=== PATIENT | male | born 2000 | race Caucasian/White ===

== ENCOUNTER 2020-03-11 03:15 | Emergency (ER) | payer OTHER ==
[~2020-03-11] VITALS: Ht 190.5 cm; Wt 82.0 kg
--- NOTE | 2020-03-11 04:06 | PHYS DOC ---
Past History Past Medical History: No Pertinent History Past Surgical History: Other Additional Past Surgical Histo: cyst removed from index finger-lt hand; wisdom teeth removed Alcohol Use: None General Adult EDM: Chief Complaint: LACERATION/AVULSION HPI: HPI: 19-year-old male presents with laceration of the right knee. He was playing soccer with his college soccer team and got a cleat in the knee. He sustained a 6 cm deep V-shaped laceration. They bandaged it up and the patient was able to continue play. This happened about 6 hours ago. After the patient came back to his local university they brought him to the emergency room. His tetanus is up-to-date. Patient denies any other injuries or complaints. He is able to flex and extend the leg. Denies numbness, tingling, altered sensation. Review of Systems: Review of Systems: Constitutional: Denies fever or chills Eyes: Denies change in visual acuity HENT: Denies nasal congestion or sore throat Respiratory: Denies cough or shortness of breath Cardiovascular: Denies chest pain or edema GI: Denies abdominal pain, nausea, vomiting, bloody stools or diarrhea : Denies dysuria Musculoskeletal: Denies back pain or joint pain Integument: Laceration right knee Neurologic: Denies headache, focal weakness or sensory changes Endocrine: Denies polyuria or polydipsia Lymphatic: Denies swollen glands Psychiatric: Denies depression or anxiety Allergies: Allergies: Allergies Coded Allergies Type Severity Reaction Last Updated Verified No Known Drug Allergies 03/11/20 No Physical Exam: PE: Constitutional: Well developed, well nourished, no acute distress, non-toxic appearance. [] HENT: Normocephalic, atraumatic, bilateral external ears normal, oropharynx moist, no oral exudates, nose normal. [] Eyes: PERRLA, EOMI, conjunctiva normal, no discharge. [] Neck: Normal range of motion, no tenderness, supple, no stridor. [] Cardiovascular:Heart rate regular rhythm, no murmur [] Lungs & Thorax: Bilateral breath sounds clear to auscultation [] Abdomen: Bowel sounds normal, soft, no tenderness, no masses, no pulsatile masses. [] Skin: 6 cm V-shaped laceration of the right knee [] Back: No tenderness, no CVA tenderness. [] Extremities: No tenderness, no cyanosis, no clubbing, ROM intact, no edema. [] Neurologic: Alert and oriented X 3, normal motor function, normal sensory function, no focal deficits noted. [] Psychologic: Affect normal, judgement normal, mood normal. [] Current Patient Data: Vital Signs: Vital Signs Date Time Temp Pulse Resp B/P (MAP) Pulse Ox O2 Delivery O2 Flow Rate FiO2 03/11/20 03:20 98.1 75 20 135/74 (94) 98 Room Air EKG: EKG: [] Radiology/Procedures: Radiology/Procedures: [] Heart Score: Risk Factors: Risk Factors: DM, Current or recent (<one month) smoker, HTN, HLP, family history of CAD, obesity. Risk Scores: Score 0 - 3: 2.5% MACE over next 6 weeks - Discharge Home Score 4 - 6: 20.3% MACE over next 6 weeks - Admit for Clinical Observation Score 7 - 10: 72.7% MACE over next 6 weeks - Early Invasive Strategies Course & Med Decision Making: Course & Med Decision Making Pertinent Labs and Imaging studies reviewed. (See chart for details) I repaired the patient's laceration with sutures. See note below for more details. His tetanus is up-to-date. I advised the patient to leave the sutures in for at least 10 days and to not fully flex his knee for at least 3 days. He is stable for discharge at this time. [] Dragon Disclaimer: Dragon Disclaimer: This electronic medical record was generated, in whole or in part, using a voice recognition dictation system. Laceration Repair Lac Repair Indication: [] 6 cm V-shaped laceration of the right knee Procedure: The patient gave me verbal permission for suture repair of his laceration. The wound was anesthetized with 1% lidocaine with epinephrine. A total of 3.5 cc was used. Once anesthesia was achieved, the wound was thoroughly irrigated with normal saline under pressure. A couple small pieces of gravel were removed. I then repaired the wound with 3-0 Ethilon suture. There were 8 stitches in interrupted fashion. There was good skin approximation and bleeding was controlled. A nonadherent dressing and compression bandage were applied over the wound. Patient was advised that a portion of the flap would likely not survive and the skin would heal from the outside in. Total repaired wound length: 6 cm Other Items: None The patient tolerated the procedure well. Complications: V-shaped flap Departure Departure: Impression: Primary Impression: Laceration of right knee Qualified Codes: S81.011A - Laceration without foreign body, right knee, initial encounter Disposition: 01 DC HOME SELF CARE/HOMELESS Condition: IMPROVED Referrals: PCP,NO (PCP) Patient Instructions: Laceration Care, Adult, [id number], Sutured Wound Care, [id number] BRITNEY GARCIA DO Mar 11, 2020 04:06
[2020-03-11 04:15] VITALS: BP 128/72
== END 2020-03-11 04:20 | disposition home or self-care (01) ==
LOC: ER 03:15
DX: S81.011A Laceration without foreign body, right knee, initial encounter (principal); Z98.890 Other specified postprocedural states; Y29.XXXA Contact with blunt object, undetermined intent, initial encounter; Y93.66 Activity, soccer; Y92.89 Other specified places as the place of occurrence of the external cause; Y99.8 Other external cause status
CPT/HCPCS: 12042; 99284

== ENCOUNTER 2021-01-31 08:03 | Emergency (ER) | payer OTHER ==
[~2021-01-31] VITALS: Ht 190.5 cm; Wt 80.9 kg
[2021-01-31 08:10] VITALS: BP 130/67
--- NOTE | 2021-01-31 08:40 | RAD ---
XR FINGER(S)_LEFT 2+VIEWS_RT History: Reason: LEFT PINKY PAIN, PIP AND DIP / Spl. Instructions: / History: Technique: PA view the hand and 3 additional views of the fifth digit. Comparison: None. Findings: Fifth middle phalanx dislocation volar to the proximal interphalangeal joint. Acute comminuted fifth middle phalanx base fracture intra-articular. There is adjacent soft tissue swelling. No additional f racture. Impression: 1. Acute left fifth middle phalanx fracture dislocation. Electronically signed by: Dell Medina DO (01/31/2021 8:38 AM) [id number]
[2021-01-31] MEDS ORDERED: LIDOCAINE 1% PF 30 ML VIAL. INJ ONE (08:45)
--- NOTE | 2021-01-31 09:38 | PHYS DOC ---
Past History Past Medical History: No Pertinent History Past Surgical History: No Surgical History Additional Past Surgical Histo: cyst removed from index finger-lt hand; wisdom teeth removed Alcohol Use: None General Adult EDM: Chief Complaint: FINGER INJURY HPI: HPI: Patient is a 20 year old male who presents with left pinky pain. 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 He had immediate pain in his pinky. Mostly between his PIP and DIP. Denies numbness or tingling. He has had limited range of motion. He denies any bleeding or wounds at any time. Tetanus is up-to-date. Review of Systems: Review of Systems: Constitutional: Denies fever or chills Eyes: Denies change in visual acuity HENT: Denies nasal congestion or sore throat Respiratory: Denies cough or shortness of breath Cardiovascular: Denies chest pain or edema GI: Denies abdominal pain, nausea, vomiting, bloody stools or diarrhea : Denies dysuria Musculoskeletal: Left pinky pain Integument: Denies rash Neurologic: Denies headache, focal weakness or sensory changes Endocrine: Denies polyuria or polydipsia Lymphatic: Denies swollen glands Psychiatric: Denies depression or anxiety Current Medications: Current Meds: Current Medications Medications (Trade) Dose Ordered Sig/Michele Start Time Stop Time Status Last Admin Dose Admin Lidocaine HCl (Lidocaine 1% Pf) 30 ml 1X ONCE 01/31/21 08:45 01/31/21 08:46 DC Allergies: Allergies: Allergies Coded Allergies Type Severity Reaction Last Updated Verified No Known Drug Allergies 03/11/20 No Physical Exam: PE: Constitutional: Well developed, well nourished, no acute distress, non-toxic appearance. [] HENT: Normocephalic, atraumatic, bilateral external ears normal, oropharynx moist, no oral exudates, nose normal. [] Eyes: PERRLA, EOMI, conjunctiva normal, no discharge. [] Neck: Normal range of motion, no tenderness, supple, no stridor. [] Cardiovascular:Heart rate regular rhythm, no murmur [] Lungs & Thorax: Bilateral breath sounds clear to auscultation [] Abdomen: Bowel sounds normal, soft, no tenderness, no masses, no pulsatile masses. [] Skin: Warm, dry, no erythema, no rash. [] Back: No tenderness, no CVA tenderness. [] Extremities: Left pinky appears slightly edematous. It is in a curled and internally rotated position. Sensation intact distally. Cap refill less than 2 seconds distally. Cannot range over the DIP or PIP. [] Neurologic: Alert and oriented X 3, normal motor function, normal sensory function, no focal deficits noted. [] Psychologic: Affect normal, judgement normal, mood normal. [] Current Patient Data: Vital Signs: Vital Signs Date Time Temp Pulse Resp B/P (MAP) Pulse Ox O2 Delivery O2 Flow Rate FiO2 01/31/21 08:10 98.0 64 16 130/67 88 100 Room Air EKG: EKG: [] Radiology/Procedures: Radiology/Procedures: [][address] [address] IMAGING REPORT Signed PATIENT: JACK SHERIFF ACCOUNT: [id number] : 2000 LOCATION: ER AGE: 20 SEX: M EXAM STATUS: REG ER ORD. PHYSICIAN: PRISCILLA GORDON MD REASON: LEFT PINKY PAIN, PIP AND DIP PROCEDURE: FINGER(S) LEFT XR FINGER(S)_LEFT 2+VIEWS_RT History: Reason: LEFT PINKY PAIN, PIP AND DIP / Spl. Instructions: / History: Technique: PA view the hand and 3 additional views of the fifth digit. Comparison: None. Findings: Fifth middle phalanx dislocation volar to the proximal interphalangeal joint. Acute comminuted fifth middle phalanx base fracture intra-articular. There is adjacent soft tissue swelling. No additional fracture. Impression: 1. Acute left fifth middle phalanx fracture dislocation. Electronically signed by: Dell Medina DO (01/31/2021 8:38 AM) [id number] DICTATED AND SIGNED BY: DELL MEDINA DO DATE: 01/31/21 0835 CC: PRISCILLA GORDON MD; PCP,NO ~MTH0 0 Procedure: Fracture dislocation reduction and splinting. Consent: Obtained from patient. Preprocedural assessment: See physical exam above. Anesthesia: 1% lidocaine 5 mL injected over the volar surface just proximal to the fifth digit on the left. Procedure: The left fifth pinky was pulled with axial traction with a palpable click. Alignment improved. Post procedure assessment: Pinky with improved alignment and angulation. Distal cap refill intact. Sensation intact. Range of motion was not tested. Splint: A radial gutter splint was placed with Ortho-Glass over cotton padding. This was secured with an amos wrap. Post splinting assessment: Good cap refill. Postreduction x-ray shows improved alignment. Heart Score: C/O Chest Pain: No Risk Factors: Risk Factors: DM, Current or recent (<one month) smoker, HTN, HLP, family history of CAD, obesity. Risk Scores: Score 0 - 3: 2.5% MACE over next 6 weeks - Discharge Home Score 4 - 6: 20.3% MACE over next 6 weeks - Admit for Clinical Observation Score 7 - 10: 72.7% MACE over next 6 weeks - Early Invasive Strategies Course & Med Decision Making: Course & Med Decision Making Pertinent Labs and Imaging studies reviewed. 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 X-ray shows a fracture dislocation of the middle phalanx. Reduced as above following a digital block. Splinted as above with ulnar gutter. We will provide with orthopedic follow-up. [id number] Marquise Disclaimer: Marquise Disclaimer: This electronic medical record was generated, in whole or in part, using a voice recognition dictation system. Departure Departure: Impression: Primary Impression: Fracture/dislocation, finger, proximal/middle phalanx Disposition: HOME / SELF CARE / HOMELESS Condition: STABLE Referrals: PCP,MIRIAN (PCP) Patient Instructions: Finger Fracture Additional Instructions: You broke and dislocated the middle phalanx of your left pinky finger. You will need to keep your splint in place until instructed otherwise by an orthopedic doctor. You will need to follow-up with: Dr. Kimbrough [facility] [phone] Please call their office today to schedule a follow-up appointment. For pain tylenol and ibuprofen are best used on a schedule. Please alternate between the two. -Tylenol 1000 mg every 6 hours (do not exceed 4000 mg in one day) -Ibuprofen 400 mg every 6 hours. Take with food. Do not take for more than 1 week. PRISCILLA GORDON MD Jan 31, 2021 09:38
--- NOTE | 2021-01-31 09:44 | RAD ---
EXAM: Left small finger, 3 views. HISTORY: Closed reduction. COMPARISON: 01/31/2021 FINDINGS: 3 views of the left hand are obtained. There has been reduction of the fifth proximal inter phalangeal joint into anatomic alignment. There is a minimally displaced slightly comminuted fracture involving the dorsal aspect of the base of the fifth middle phalanx. There is overlying cast materia l. IMPRESSION: 1. Interval closed reduction of the fifth proximal interphalangeal joint. 2. Minimally displaced and slightly comminuted fracture involving the base of the fifth middle phalan x. Electronically signed by: Penny Narvaez MD (01/31/2021 9:42 AM) [id number]
== END 2021-01-31 09:47 | disposition home or self-care (01) ==
LOC: ER 08:03
DX: S62.627A Displaced fracture of middle phalanx of left little finger, initial encounter for closed fracture (principal); X58.XXXA Exposure to other specified factors, initial encounter; Y93.89 Activity, other specified; Y92.89 Other specified places as the place of occurrence of the external cause; Y99.8 Other external cause status
CPT/HCPCS: 26770; 29130; 73140; 99283-25; 99284-25